=== PATIENT | female | born 1970 | race Hispanic/Latino ===

== ENCOUNTER 2022-03-08 15:57 | Emergency (ER) | payer OTHER ==
[~2022-03-08] VITALS: Ht 162.6 cm; Wt 72.7 kg
[2022-03-08] MEDS ORDERED: KETOROLAC TROMETHAMINE 30 MG/ML VIAL IV STA (16:33)
[2022-03-08] MEDS ORDERED: DEXAMETHASONE SOD PHOS INJ 4 MG/ML SDV IV ONE (16:45)
[2022-03-08] MEDS ORDERED: METOCLOPRAMIDE HCL 10 MG/2ML VIAL IV ONE (16:45)
[2022-03-08] MEDS ORDERED: SODIUM CHLORIDE 0.9% 1000ML 1,000 ML IV SCH (16:45)
[2022-03-08] MEDS ORDERED: ONDANSETRON HCL INJ 2MG/ML 2ML 2 MG/ML VIAL ONE (17:28)
[2022-03-08] MEDS ORDERED: DEXAMETHASONE SOD PHOS INJ 4 MG/ML SDV ONE (17:33)
[2022-03-08] MEDS ORDERED: FIORICET 50-301 EACH PO (17:35)
[2022-03-08] MEDS ORDERED: ONDANSETRON ODT4 MG PO (17:35)
[2022-03-08] MEDS ORDERED: METFORMIN HCL500 MG PO (18:11)
== END 2022-03-08 18:29 | disposition home or self-care (01) ==
LOC: FSED 16:19
DX: R51.9 Headache, unspecified (principal); E11.65 Type 2 diabetes mellitus with hyperglycemia; R11.0 Nausea
CPT/HCPCS: 70450; 80053; 85025; 96374; 96375; 99284; J1100; J1885; J2765; J7030; J2405

== ENCOUNTER 2023-05-14 08:44 | Emergency (ER) | payer OTHER ==
[~2023-05-14] VITALS: Ht 162.6 cm; Wt 66.7 kg
[~2023-05-14 08:44] MED LIST: FIORICET 50-301 EACH PO; IBUPROFEN800 MG PO; MACROBID 100 M100 MG PO; METFORMIN HCL500 MG PO; ONDANSETRON ODT4 MG PO
[2023-05-14] MEDS ORDERED: KETOROLAC TROMETHAMINE 30 MG/ML VIAL IV STA (09:26)
[2023-05-14] MEDS ORDERED: ASPIRIN 325 MG TAB PO ONE (09:30)
[2023-05-14] MEDS ORDERED: IBUPROFEN600 MG PO (10:17)
[2023-05-14] MEDS ORDERED: MACROBID 100 M100 MG PO (10:17)
[2023-05-14 10:23] VITALS: BP 122/76; PULSE 81; RESP 17; O2SAT 99
== END 2023-05-14 10:25 | disposition home or self-care (01) ==
LOC: FSED 08:48
DX: R06.00 Dyspnea, unspecified (principal); R07.9 Chest pain, unspecified; E11.65 Type 2 diabetes mellitus with hyperglycemia; N39.0 Urinary tract infection, site not specified
CPT/HCPCS: 71046; 80053; 81003; 81025; 82553; 84484; 85025; 93005; 99284; J1885